=== PATIENT | female | born 1965 | race American Indian/Alaskan Native ===

== ENCOUNTER 2017-05-14 10:26 | Emergency (ER) | payer OTHER ==
[2017-05-14 10:43] VITALS: BP 135/61
[2017-05-14] MEDS ORDERED: XYLOCAINE 2% INFILTRATI ONE (11:25)
--- NOTE | 2017-05-14 11:30 | Emergency Department Report ---
ED Female HPI - General Chief complaint: Urogenital-Female Stated complaint: BOIL ON GROIN AREA Time Seen by Provider: 05/14/17 11:14 Source: patient Mode of arrival: Ambulatory Limitations: No Limitations - History of Present Illness Initial comments: pt is a 51 y/o aaf with hx of bartholin cyst /abscess recurrent last 1 yr ago , pt states she is pending PROCESS LINE OPERATOR follow up in 1 month, but noted "the start of as cyst/abscess on left side x 5 days ago symptoms include pain erythema no fever no chills no n/v no vaginal discharge no abdominal or back pain .pt attempted po amoxicillin with no improvement in symptoms is request "draining" today. MD Complaint: other (hx recurrent bartholin cysts / abscess for past 20 yrs ) Onset/Timin -: Gradual, days(s) Location: labia Radiation: non-radiating Severity: moderate Severity scale (0 -10): 5 Quality: sharp Consistency: constant Improves with: none Worsens with: other (palpation ) Are you Now?: No (post menopausal ) Associated Symptoms: denies: vaginal discharge, vaginal bleeding, abdominal pain , nausea/vomiting, fever/chills, headaches, loss of appetite, dysuria, hematuria , rash, seizure, shortness of breath, syncope, weakness - Related Data Sexually active: No Previous Rx's Medication Instructions Recorded Last Taken Type Fluconazole [Diflucan] 150 mg PO QDAY #1 tablet 07/15/14 Unknown Rx HYDROcodone/APAP 5-325 [[place] 1 each PO Q6HR PRN #15 tablet 07/15/14 Unknown Rx 5-325 mg TAB] Sulfamethoxazole/Trimethoprim 1 each PO BID #20 tablet 07/15/14 Unknown Rx [Bactrim Ds] Cephalexin [Keflex] 500 mg PO Q12HR #20 cap 01/21/16 Unknown Rx Ibuprofen [Motrin 800 MG tab] 800 mg PO Q8HR PRN #30 tablet 01/21/16 Unknown Rx Cephalexin [Keflex] 500 mg PO TID #30 capsule 05/14/17 Unknown Rx traMADol [Ultram] 50 mg PO Q6HR PRN #20 tablet 05/14/17 Unknown Rx Allergies Allergy/AdvReac Type Severity Reaction Status Date / Time No Known Allergies Allergy Verified 10/02/15 11:20 ED Review of Systems ROS: Stated complaint: BOIL ON GROIN AREA Other details as noted in HPI Constitutional: denies: chills, fever Eyes: denies: eye pain, eye discharge, vision change ENT: denies: ear pain, throat pain Respiratory: denies: cough, shortness of breath, wheezing Cardiovascular: denies: chest pain, palpitations Endocrine: no symptoms reported Gastrointestinal: denies: abdominal pain, nausea, diarrhea Genitourinary: denies: urgency, dysuria, frequency, hematuria, discharge, other (bartholin cyst left labia ) Musculoskeletal: denies: back pain, joint swelling, arthralgia Skin: denies: rash, lesions Neurological: denies: headache, weakness, paresthesias Psychiatric: denies: anxiety, depression Hematological/Lymphatic: denies: easy bleeding, easy bruising ED Past Medical Hx - Past Medical History Previous Medical History?: Yes Additional medical history: anemia, uterine cysts, Bartholin cyst - Surgical History Past Surgical History?: Yes Hx Breast Surgery: Yes (BREAST AUGMENTATION) Additional Surgical History: EYE SURGERY, Lap Band surgery - Social History Smoking Status: Never Smoker Substance Use Type: Alcohol, Prescribed - Medications Home Medications: Home Medications Medication Instructions Recorded Confirmed Last Taken Type Fluconazole [Diflucan] 150 mg PO QDAY #1 tablet 07/15/14 Unknown Rx HYDROcodone/APAP 5-325 [[place] 1 each PO Q6HR PRN #15 tablet 07/15/14 Unknown Rx 5-325 mg TAB] Sulfamethoxazole/Trimethoprim 1 each PO BID #20 tablet 07/15/14 Unknown Rx [Bactrim Ds] Cephalexin [Keflex] 500 mg PO Q12HR #20 cap 01/21/16 Unknown Rx Ibuprofen [Motrin 800 MG tab] 800 mg PO Q8HR PRN #30 tablet 01/21/16 Unknown Rx Cephalexin [Keflex] 500 mg PO TID #30 capsule 05/14/17 Unknown Rx traMADol [Ultram] 50 mg PO Q6HR PRN #20 tablet 05/14/17 Unknown Rx ED Physical Exam - General Limitations: No Limitations General appearance: alert, in no apparent distress - Head Head exam: Present: atraumatic, normocephalic - Eye Eye exam: Present: normal appearance - ENT ENT exam: Present: mucous membranes moist - Neck Neck exam: Present: normal inspection - Respiratory Respiratory exam: Present: normal lung sounds bilaterally. Absent: respiratory distress - Cardiovascular Cardiovascular Exam: Present: regular rate, normal rhythm. Absent: systolic murmur, diastolic murmur, rubs, gallop - GI/Abdominal GI/Abdominal exam: Present: soft, normal bowel sounds - Rectal Rectal exam: Present: deferred - External exam: Present: erythema, swelling, other (left bartholin cyst erythema pain no drainage ). Absent: lesions, lacerations, ecchymosis, bleeding Speculum exam: Absent: vaginal discharge, cervical discharge, vaginal bleeding, foreign body, tissue, laceration - Extremities Exam Extremities exam: Present: normal inspection - Back Exam Back exam: Present: normal inspection - Neurological Exam Neurological exam: Present: alert, oriented X3 - Psychiatric Psychiatric exam: Present: normal affect, normal mood - Skin Skin exam: Present: warm, dry, intact, normal color. Absent: rash ED Course Vital Signs 05/14/17 10:37 Temperature 98.8 F Pulse Rate 100 H Respiratory 18 Rate Blood Pressure 135/61 O2 Sat by Pulse 98 Oximetry - I & D Left Vagina Type of Procedure: Simple Site: left labial bartholin abscess Blade Size: 11 I & D Procedure: betadine prep, sterile drapes applied, sterile dressing applied , gauze wick placed Progress: left labia bartholin abscess 1x 2 cm fluctuant, site cleaned with betadine solution, anesthesia with 1% lidocaine 2 cc, incision with 11 blade scaple straight x 1 output moderate purulent drainage wound irrigated with 30 cc sterile sline, iodoform wick and sterile dressing applied, pt given post procedure care instructions pt verbalized agreement and understanding of same. pt tolerated procedure with minimal distress. ED Medical Decision Making - Medical Decision Making pt is a 51 y/o aaf with hx of bartholin cyst /abscess recurrent last 1 yr ago , pt states she is pending PROCESS LINE OPERATOR follow up in 1 month, but noted "the start of as cyst/abscess on left side x 5 days ago symptoms include pain erythema no fever no chills no n/v no vaginal discharge no abdominal or back pain .pt attempted po amoxicillin with no improvement in symptoms is request "draining" today. left labial bartholin abscess, 1x2 cm, erythema, pain , I&D see procedure note pt tolerated with minimal distress, pt given wound care instructions pt verbalized understanding of same pt will follow up with broadcast systems engineer as scheduled in 3 days for wound check, pt is currently a/o x 3 ambulatory gait steady with nad at this time dc/d to self. Critical care attestation.: If time is entered above; I have spent that time in minutes in the direct care of this critically ill patient, excluding procedure time. ED Disposition Clinical Impression: Bartholin cyst, Abscess of labia majora Disposition: DC-01 TO HOME OR SELFCARE Is pt being admited?: No Does the pt Need Aspirin: No Condition: Good Instructions: Abscess (ED), Incision and Drainage (ED) Additional Instructions: follow up with PROCESS LINE OPERATOR as scheduled in 3 days for wound check or return to emergency immediately if symptoms worsen Prescriptions: Cephalexin [Keflex] 500 mg PO TID #30 capsule traMADol [Ultram] 50 mg PO Q6HR PRN #20 tablet PRN Reason: Pain Referrals: PRIMARY CARE, [Primary Care Provider] - 3-5 Days Forms: Work/School Release Form(ED) Time of Disposition: 12:12
[2017-05-14] MEDS ORDERED: NACL 0.9% 500 ML IR ONE (11:37)
[2017-05-14] MEDS ORDERED: NACL 0.9% IR ONE (11:54)
== END 2017-05-14 12:24 | disposition home or self-care (01) ==
LOC: ED 10:26
DX: N75.1 Abscess of Bartholin's gland (principal)

== ENCOUNTER 2018-09-17 11:32 | Emergency (ER) | payer OTHER ==
[2018-09-17 11:38] VITALS: BP 155/81
[2018-09-17] MEDS ORDERED: XYLOCAINE 1% 20 mL INFILTRATI ONE (11:41)
--- NOTE | 2018-09-17 11:41 | Emergency Department Report ---
Chief Complaint: Urogenital-Female Stated Complaint: CYST (L) GROIN AREA Time Seen by Provider: 09/17/18 11:39 - HPI History of Present Illness: barthol. cyst chronic per pt she comes to er to get tx not obgyn- needs referral no fever ambulatory pmh cyst only psh none rx none deny tobacco utd on tetanus menopausal VSS NAD ABC intact No life threat identified on MSE eval. - Exam Vital Signs: Vital Signs 09/17/18 11:37 Temperature 98.1 F Pulse Rate 122 H Respiratory 18 Rate Blood Pressure 155/81 [Right] O2 Sat by Pulse 100 Oximetry MSE screening note: Focused history and physical exam performed. Due to findings the following was ordered: ED Disposition for MSE Condition: Stable
[2018-09-17] MEDS ORDERED: TORADOL IM ONE (12:17)
[2018-09-17] MEDS ORDERED: DILAUDID IM ONE (12:17)
--- NOTE | 2018-09-17 13:12 | Emergency Department Report ---
ED Female HPI - General Chief complaint: Urogenital-Female Stated complaint: CYST (L) GROIN AREA Time Seen by Provider: 09/17/18 11:39 Source: patient Mode of arrival: Ambulatory Limitations: No Limitations - History of Present Illness Initial comments: Patient is a 53-year-old Female who has had an extensive history of recurrent Bartholin's cyst. Patient is scheduled to have her Bartholin's gland removed. Patient states that she's had swelling to the left labia minora for the last 2-3 days. Patient has 8 out of 10 pain as aching and pressure-like. Patient denies any dysuria or abnormal vaginal bleeding. She denies any fevers or chills. - Related Data Previous Rx's Medication Instructions Recorded Last Taken Type Fluconazole [Diflucan] 150 mg PO QDAY #1 tablet 07/15/14 Unknown Rx HYDROcodone/APAP 5-325 [[place] 1 each PO Q6HR PRN #15 tablet 07/15/14 Unknown Rx 5-325 mg TAB] Sulfamethoxazole/Trimethoprim 1 each PO BID #20 tablet 07/15/14 Unknown Rx [Bactrim Ds] Ibuprofen [Motrin 800 MG tab] 800 mg PO Q8HR PRN #30 tablet 01/21/16 Unknown Rx cephALEXin [Keflex] 500 mg PO Q12HR #20 cap 01/21/16 Unknown Rx Cephalexin [Keflex] 500 mg PO TID #30 capsule 05/14/17 Unknown Rx traMADol [Ultram] 50 mg PO Q6HR PRN #20 tablet 05/14/17 Unknown Rx Doxycycline [Vibramycin CAP] 100 mg PO Q12HR #14 capsule 09/17/18 Unknown Rx HYDROcodone/APAP 5-325 [[place] 1 each PO Q4HR PRN #12 tablet 09/17/18 Unknown Rx 5/325] Ibuprofen [Motrin] 800 mg PO Q8HR PRN #20 tablet 09/17/18 Unknown Rx Allergies Allergy/AdvReac Type Severity Reaction Status Date / Time No Known Allergies Allergy Verified 10/02/15 11:20 ED Review of Systems ROS: Stated complaint: CYST (L) GROIN AREA Other details as noted in HPI Comment: All other systems reviewed and negative ED Past Medical Hx - Past Medical History Additional medical history: anemia, uterine cysts, Bartholin cyst - Surgical History Hx Breast Surgery: Yes (BREAST AUGMENTATION) Additional Surgical History: EYE SURGERY, Lap Band surgery - Social History Smoking Status: Never Smoker Substance Use Type: None - Medications Home Medications: Home Medications Medication Instructions Recorded Confirmed Last Taken Type Fluconazole [Diflucan] 150 mg PO QDAY #1 tablet 07/15/14 Unknown Rx HYDROcodone/APAP 5-325 [[place] 1 each PO Q6HR PRN #15 tablet 07/15/14 Unknown Rx 5-325 mg TAB] Sulfamethoxazole/Trimethoprim 1 each PO BID #20 tablet 07/15/14 Unknown Rx [Bactrim Ds] Ibuprofen [Motrin 800 MG tab] 800 mg PO Q8HR PRN #30 tablet 01/21/16 Unknown Rx cephALEXin [Keflex] 500 mg PO Q12HR #20 cap 01/21/16 Unknown Rx Cephalexin [Keflex] 500 mg PO TID #30 capsule 05/14/17 Unknown Rx traMADol [Ultram] 50 mg PO Q6HR PRN #20 tablet 05/14/17 Unknown Rx Doxycycline [Vibramycin CAP] 100 mg PO Q12HR #14 capsule 09/17/18 Unknown Rx HYDROcodone/APAP 5-325 [[place] 1 each PO Q4HR PRN #12 tablet 09/17/18 Unknown Rx 5/325] Ibuprofen [Motrin] 800 mg PO Q8HR PRN #20 tablet 09/17/18 Unknown Rx ED Physical Exam - General Limitations: No Limitations General appearance: alert, in no apparent distress - Head Head exam: Present: atraumatic, normocephalic - Eye Eye exam: Present: normal appearance - ENT ENT exam: Present: mucous membranes moist - Neck Neck exam: Present: normal inspection - Respiratory Respiratory exam: Present: normal lung sounds bilaterally. Absent: respiratory distress - Cardiovascular Cardiovascular Exam: Present: regular rate, normal rhythm. Absent: systolic murmur, diastolic murmur, rubs, gallop - GI/Abdominal GI/Abdominal exam: Present: soft, normal bowel sounds - External exam: Present: swelling (patient with swelling and tenderness to palpation to the left lower labia minora) - Extremities Exam Extremities exam: Present: normal inspection - Back Exam Back exam: Present: normal inspection - Neurological Exam Neurological exam: Present: alert, oriented X3 - Psychiatric Psychiatric exam: Present: normal affect, normal mood - Skin Skin exam: Present: warm, dry, intact, normal color. Absent: rash ED Course Vital Signs 09/17/18 09/17/18 11:37 11:38 Temperature 98.1 F 98.1 F Pulse Rate 122 H 124 H Respiratory 18 Rate Blood Pressure 155/81 [Right] O2 Sat by Pulse 100 Oximetry - I & D Left Vagina Type of Procedure: Complex Site: left Bartholin's cyst Blade Size: 11 I & D Procedure: betadine prep, sterile drapes applied, sterile dressing applied, gauze wick placed ED Medical Decision Making - Medical Decision Making Patient had her Bartholin's gland drain. Contact. Patient is feeling much improved after this procedure. Patient be discharged home follow with her TUFTER. Critical care attestation.: If time is entered above; I have spent that time in minutes in the direct care of this critically ill patient, excluding procedure time. ED Disposition Clinical Impression: Bartholin cyst Disposition: DC-01 TO HOME OR SELFCARE Is pt being admited?: No Does the pt Need Aspirin: No Condition: Stable Instructions: Bartholin Cyst (ED), Incision and Drainage (ED) Referrals: ROMANA WARD MD [Primary Care Provider] - 3-5 Days Time of Disposition: 13:12
== END 2018-09-17 13:30 | disposition home or self-care (01) ==
LOC: ED 11:32
DX: N75.0 Cyst of Bartholin's gland (principal)
CPT/HCPCS: 99282; J1170; J1885